=== PATIENT | female | born 1975 | race Caucasian/White ===

== ENCOUNTER → 2017-01-09 | Outpatient (CLI) | payer OTHER ==
--- NOTE | 2017-01-09 16:23 | REPMRS ---
Patient History The patient states she had a clinical breast exam in 12/2016. No known family history of cancer. Took hormonal contraceptives for 13 years. Digital Woman Screen Mammo: January 09, 2017 - Exam #: [id number] Bilateral CC and MLO view(s) were taken. Technologist: Zulay Cuellar, Technologist Prior study comparison: January 09, 2016, digital woman screen mammo performed at [facility]. December 20, 2014, bilateral digital mammo screening bilat, performed at [facility]. FINDINGS: There are scattered fibroglandular densities. There has been no change in the appearance of the mammogram from the prior studies. There is a mild amount of residual fibroglandular tissue which is fairly symmetric. There is no interval development of dominant mass, architectural distortion, or clustered microcalcification suggestive of malignancy. ASSESSMENT: BI-RADS/ACR category 1 mammogram. Negative. Recommendation Routine screening mammogram in 1 year (for women over age 40). This mammogram was interpreted with the aid of an FDA-approved computer-aided dectection system. Electronically Signed By: Matt Sanchez MD 01/09/17 [id number]
== END ==
LOC: M WHC 15:16
PROVIDERS: ATTEND Obstetrics & Gynecology
DX: Z12.31 Encounter for screening mammogram for malignant neoplasm of breast (principal)

== ENCOUNTER → 2017-09-28 | Outpatient (REF) | payer OTHER | LOC: M LAB REF 09-29 14:47 | DX: J02.9 Acute pharyngitis, unspecified (principal) | CPT/HCPCS: 87081 ==

== ENCOUNTER → 2018-01-06 | Outpatient (CLI) | payer OTHER | LOC: M WHC 14:28 | DX: Z12.31 Encounter for screening mammogram for malignant neoplasm of breast (principal) | CPT/HCPCS: 77067 ==

== ENCOUNTER → 2018-01-23 | Outpatient (CLI) | payer OTHER | LOC: M RAD 14:44 | DX: N60.01 Solitary cyst of right breast (principal) | CPT/HCPCS: 76642 ==

== ENCOUNTER → 2018-08-01 | Outpatient (CLI) | payer OTHER | LOC: M ADAMS 13:22 | DX: M54.5 Low back pain (principal) | CPT/HCPCS: 72100 ==

== ENCOUNTER → 2018-11-06 | Outpatient (REF) | payer OTHER ==
[2018-11-06 13:27] LABS: BASO % 0.8 % (0.0-1.0); EOS # 0.1 10^3/uL (0.0-0.50); EOS % 3.5 % (0.0-3.0); HEMATOCRIT 41.9 % (36.0-47.0); HEMOGLOBIN 13.9 g/dl (12.0-15.5); LYMPH # 1.6 10^3/uL (1.5-4.5); MEAN CORPUSCULAR HEMOGLOBIN 29.9 pg (27.0-33.0); MEAN CORPUSCULAR HGB CONC 33.2 g/dl (32.0-36.5); MEAN CORPUSCULAR VOLUME 90.1 fl (80.0-96.0); MONO # 0.4 10^3/uL (0.0-0.8); MONO % 9.9 % (0.0-5.0); NEUTROPHILS # 1.8 10^3/uL (1.8-7.7); NEUTROPHILS % 45.5 % (36.0-66.0); PLATELET COUNT, AUTOMATED 250 10^3/uL (150-450); RED BLOOD COUNT 4.65 10^6/uL (4.00-5.40)
[2018-11-06 13:49] LABS: ALBUMIN 3.5 GM/DL (3.2-5.2); BILIRUBIN,TOTAL 0.3 MG/DL (0.2-1.0); CALCIUM LEVEL 8.1 MG/DL (8.5-10.1); CHOLESTEROL RISK RATIO 2.735 (<5); CREATININE FOR GFR 1.09 MG/DL (0.55-1.30); FREE T4 1.08 NG/DL (0.76-1.46); GLOMERULAR FILTRATION RATE 58.1 (>58); POTASSIUM SERUM 4.4 MEQ/L (3.5-5.1); THYROID STIMULATING HORMONE 1.64 uIU/ML (0.358-3.740); TOTAL PROTEIN 6.4 GM/DL (6.4-8.2)
[2018-11-06 14:24] LABS: HEMOGLOBIN A1c 5.7 %
[2018-11-06 15:54] LABS: TOTAL 25(OH) VITAMIN D 79.1 NG/ML (30.0-100.0)
== END ==
LOC: M LABDRWAD 12:20
PROVIDERS: ATTEND Physician Assistant
DX: Z13.29 Encounter for screening for other suspected endocrine disorder (principal)

== ENCOUNTER 2020-02-03 20:08 | Inpatient (IN) | payer OTHER ==
[~2020-02-03] VITALS: Ht 170.2 cm; Wt 80.3 kg
[~2020-02-03 20:08] MED LIST: NICOTINE 21MG/24HR 1 EA TRANSDERMAL TD SCH
[2020-02-03] MEDS ORDERED: HYDR100C PO (20:14)
[2020-02-03] MEDS ORDERED: ASPI81TA26 PO (20:15)
[2020-02-03 20:52] LABS: HEMATOCRIT 44.1 % (36.0-47.0); HEMOGLOBIN 14.9 g/dl (12.0-15.5); MEAN CORPUSCULAR HEMOGLOBIN 29.6 pg (27.0-33.0); MEAN CORPUSCULAR HGB CONC 33.8 g/dl (32.0-36.5); MEAN CORPUSCULAR VOLUME 87.5 fl (80.0-96.0); PLATELET COUNT, AUTOMATED 242 10^3/uL (150-450); RED BLOOD COUNT 5.04 10^6/uL (4.00-5.40)
[2020-02-03] MEDS ORDERED: ASPIRIN 81 MG ENTERIC TAB PO SCH (21:00)
[2020-02-03] MEDS ORDERED: VITAMIN D 1,000 INTERNATIONAL UNITS TABLET PO SCH (21:00)
[2020-02-03] MEDS ORDERED: hydrOXYzine 50 MG TAB PO SCH (21:00)
[2020-02-03 21:15] LABS: AMPHETAMINES LEVEL URINE NEGATIVE (NEGATIVE); BARBITURATES URINE NEGATIVE (NEGATIVE); BENZODIAZEPINES URINE NEGATIVE (NEGATIVE); CANNABINOIDS URINE NEGATIVE (NEGATIVE); COCAINE METABOLITE URINE NEGATIVE (NEGATIVE); METHADONE URINE NEGATIVE (NEGATIVE); OPIATES URINE NEGATIVE (NEGATIVE); PHENCYCLIDINE URINE NEGATIVE (NEGATIVE)
[2020-02-03 21:25] LABS: ACETAMINOPHEN LEVEL < 2.0 UG/ML (10.0-30.0); ALBUMIN 3.9 GM/DL (3.2-5.2); ALT/SGPT 24 U/L (12-78); BILIRUBIN,DIRECT < 0.1 MG/DL (0.0-0.2); BILIRUBIN,TOTAL 0.3 MG/DL (0.2-1.0); BLOOD UREA NITROGEN 13 MG/DL (7-18); CARBON DIOXIDE LEVEL 29 MEQ/L (21-32); CHLORIDE LEVEL 106 MEQ/L (98-107); CREATININE FOR GFR 1.21 MG/DL (0.55-1.30); ETHYL ALCOHOL (ETHANOL) 0.003 % (0.000-0.010); GLUCOSE, FASTING 131 MG/DL (70-100); POTASSIUM SERUM 3.8 MEQ/L (3.5-5.1); SALICYLATE LEVEL < 1.7 MG/DL (5.0-30.0); SODIUM LEVEL 143 MEQ/L (136-145); TOTAL PROTEIN 7.2 GM/DL (6.4-8.2)
[2020-02-03] MEDS ORDERED: OMEG350C PO (21:47)
[2020-02-03] MEDS ORDERED: GLUCTAB6 PO (21:47)
[2020-02-03] MEDS ORDERED: HYDR50CA2 PO (21:47)
[2020-02-03] MEDS ORDERED: VITAD1000T PO (21:47)
[2020-02-03] MEDS ORDERED: MOM 30ML SUSPENSION UDC PO PRN (22:30)
[2020-02-03] MEDS ORDERED: MAALOX 30 ML SUSP *UDC PO PRN (22:30)
[2020-02-03] MEDS ORDERED: traZODone 50 MG TAB PO PRN (22:30)
[2020-02-03] MEDS ORDERED: ACETAMINOPHEN TAB 650MG DOSE (2X325MG) PO PRN (22:30)
[2020-02-04 00:37] VITALS: BP 124/89
[2020-02-04 06:14] VITALS: BP 130/66
--- NOTE | 2020-02-04 09:22 | MHHPEPDOC ---
[facility] History & Physical History and Physical DATE OF ADMISSION: February 03, 2020 at 22:26 New Patient Angelina Rodriguez MRN: N/A Date of : N/A Date of Service: 02/04/2020 Chief Complaint "It was nothing." History of Present Illness The patient is a 44-year-old woman who reportedly had become quite upset after an argument with her ex-, she reports her ex- is a narcissist and makes her life difficult. She reports that she had gotten fairly upset. She is not as forthcoming as I would like about the details and generally is guarded about discussing what happened. There have been concerns that she had gotten a firearm out of her gun safe and could have been planning to hurt herself before her colleagues had called the police. She generally denies all psychiatric symptoms although appears quite tearful and flat. She denies any suicide attempts in the past. Review Of Systems Depression: As above. Denies all symptoms. Anxiety: Denies all symptoms. Mona: The patient denies any episodes of euphoria/dysphoria associated with decreased need for sleep, hedonism, talkatively or impulsivity lasting longer than 5 days. Psychotic: The patient denies any experiences of auditory or visual hallucinations. They deny any episodes of paranoia or delusional thinking in the past Trauma: The patient denies any traumatic events associated with nightmares or intrusive thoughts. Borderline: Not screened. Past Psychiatric History The patient reports no history of psychiatric admissions, medication trials or current follow up. Allergies Please see below. Family Psychiatric History The patient denies/is unaware any history of mental health history including addictions and suicide. 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 She reports being to another man for six years. She reports having two children with her ex- and a fairly contentious relationship. No history of legal problems. Substance Abuse History The patient denies any excessive alcohol use, tobacco or illicit drug use, denies history of substance use treatment. Medical History Patient has no significant past medical history. Mental Status Examination General: Well dressed with good hygiene. Speech: Spontaneous and fluid. Thought processes: Linear and logical. MSK: Smooth and coordinated gait, no signs of tremors or involuntary orofacial movements. Thought content: Guarded. Abstract reasoning, and computation: Intact. Description of associations: Intact. Description of abnormal or psychotic thoughts: Overtly denies any suicidal or homicidal ideation. Judgment: Unclear. Insight: Unclear. Orientation: Alert and orientated 3. Cognition: Grossly normal. Recent and remote memory: Intact. Attention span and concentration: Intact. Fund of knowledge: Adequate. Mood: "okay." Affect: Flat and dysthymic. Diagnoses Unspecified depressive disorder. Unspecified trauma/stress related disorder. Assessment and Plan The patient, a 44-year-old woman with a history of no known psychiatric problems, presents after reportedly getting into some form of an argument, the situation appears unclear and the patient is somewhat guarded during the interview. It is unclear as to what the situation had been or how she had come to get here. The patient continually request discharge, however, she is quite flat at this time and will likely need further observation unless collateral information from her current can clarify the situation enough so that a safe plan can be made. I have discussed with the patient that I would be open to discharging her today if I was able to evaluate the situation further with more information to determine exactly what had happened as it appears unclear. I will discuss with the on-call provider for tomorrow for her evaluation as to whether she wishes to discharge the patient and whether she would meet involuntary criteria at that time. Disposition Will retain unless further collateral information suggests that likely will need extension at 48 hours if does not resolve significantly. Problem List 1. Risk for suicide. 2. Ineffective coping. Initial Treatment Plan 1. Patient was admitted on a 9.39 legal status. 2. Complete history was obtained. 3. With patients permission, family will be contacted and database will be expanded. 4. Patients medication regimen will be reviewed and changed accordingly. 5. Patient will be provided with protected environment. 6. Patient will be treated with individual, group, and milieu therapies. 7. Patient will receive supportive psych-education. 8. Discharge planning will commence immediately. 9. Outpatient follow-up treatment will be strongly recommended. 10. The initial treatment plan will focus initially on: Estimated Length Of Stay Two days. Time Spent 70 minutes with greater than 50% of times on counseling/coordination of care. Friday Vital Signs Vital Signs Date Time Temp Pulse Resp B/P (MAP) Pulse Ox O2 Delivery O2 Flow Rate FiO2 02/04/20 06:14 98.4 73 16 130/66 (87) 98 Room Air Laboratory Data 24H Labs Laboratory Tests 2 5/21/20 20:39: Nucleated Red Blood Cells % (auto) 0.0, Anion Gap 8, Glomerular Filtration Rate 51.0L, Calcium Level 9.0, Total Bilirubin 0.3, Direct Bilirubin < 0.1, Aspartate Amino Transf (AST/SGOT) 12, Alanine Aminotransferase (ALT/SGPT) 24, Alkaline Phosphatase 66, Total Protein 7.2, Albumin 3.9, Albumin/Globulin Ratio 1.2, Thyroid Stimulating Hormone (TSH) 1.040, Salicylates Level < 1.7L, Urine Opiates Screen NEGATIVE, Urine Methadone Screen NEGATIVE, Acetaminophen Level < 2.0L, Urine Barbiturates Screen NEGATIVE, Urine Phencyclidine Screen NEGATIVE, Urine Amphetamines Screen NEGATIVE, Urine Benzodiazepines Screen NEGATIVE, Urine Cocaine Metabolite Screen NEGATIVE, Urine Cannabinoids Screen NEGATIVE, Ethyl Alcohol Level 0.003 CBC/BMP Laboratory Tests 02/03/20 20:39 Medications Scheduled Aspirin (Aspirin EC) 81 Mg Tablet.dr, 81 MG PO QHS, (Reported) Cholecalciferol (Vitamin D3) (Vitamin D3) 1,000 Unit Tablet, 5,000 UNITS PO QHS, (Reported) Gluc Santacruz/Chondro Santacruz A/Vit C/Mn (Glucosamine Chondroitin Tab) 1 Each Tablet, 1 TAB PO QHS, (Reported) Hydroxyzine Pamoate (Hydroxyzine Pamoate) 50 Mg Capsule, 100 MG PO QHS, (Reporte d) [place]-3/Dha/Epa/Fish Oil ([place]-3 EC Softgel) 1 Each Capsule.dr, 1 CAP PO QHS, (Reported) Allergies Coded Allergies: Penicillins (Verified Allergy, Unknown, UNKNOWN CHILDHOOD REACTION, 02/03/20) DEMOND JONES DO February 04, 2020 09:22
--- NOTE | 2020-02-04 15:04 | MHDSPDOC ---
[facility] Discharge Summary Discharge Summary DATE OF ADMISSION: February 03, 2020 at 22:26 DATE OF DISCHARGE: 02/04/2020 Discharge Angelina Rodriguez MRN: N/A Date of : N/A Date of Service: 02/04/2020 Diagnoses Unspecified depressive disorder. Unspecified trauma/stress related disorder. History of Present Illness The patient is a 44-year-old woman who reportedly had become quite upset after an argument with her ex-, she reports her ex- is a narcissist and makes her life difficult. She reports that she had gotten fairly upset. She is not as forthcoming as I would like about the details and generally is guarded about discussing what happened. There have been concerns that she had gotten a firearm out of her gun safe and could have been planning to hurt herself before her colleagues had called the police. She generally denies all psychiatric s ymptoms although appears quite tearful and flat. She denies any suicide attempts in the past. Consultants Involved Hospitalist/PCP screening Treatment and Progress On The Unit The patient was admitted to the inpatient mental health unit. Initially when the patient had presented, the patient had reported that she had no interest in harming herself. She was emphatic about wanting to be discharged. She was observed over the day where she generally was more euthymic and hopeful. Collateral information was gathered from her who reported that she has no signs of behavior like this and this is highly unusual for her. He reports that he had removed all the weapons and engaged in safety planning and will keep a close eye on her over the weekend as he will be home during the entire time. He emphatically wanted the patient discharged and the patient was interested as well. After observation and waning of her risk factors, she was discharged in good dexter. Discharge Assessment 44-year-old woman with a history of unclear stress related problems presents after reportedly engaging in some sort of suicidal gesture or quasi-suicidal engagement. The patient is observed, however, she does not demonstrate significant factors enough given the collateral information to be held against her will in my opinion. She has no history of suicide attempts, she has multiple protective factors including a respecting job, children and a supportive . She engages in safety planning and is help seeking . She declines further voluntary admission, and thus I am at a loss for baking a argument for why she should be retained over the weekend for observation that will likely yield no significant change in her status and will only cause further distress to her. Her reevaluation when I had met with her for the second time yields a much more euthymic, engaged and gregarious individual. Her initial hesitancy could be simply related to anxiety interpretation given her first presentation in inpatient psychiatric unit commonly a fairly traumatic experience for most people. Mental Status Examination General: Well dressed with good hygiene Speech: Spontaneous and fluid Thought processes: Linear and logical MSK: Smooth and coordinated gait, no signs of tremors or involuntary orofacial movements Thought content: Future orientated Abstract reasoning, and computation: Intact Description of associations: Intact Description of abnormal or psychotic thoughts: Denies any suicidal or homicidal ideation. Denies any auditory or visual hallucinations. Does not appear to be responding to internal stimuli. Does not appear to be endorsing any bizarre or paranoid ideation. Judgment: fair Insight: fair Orientation: Alert and orientated 3 Cognition: Grossly normal Recent and remote memory: Intact Attention span and concentration: Intact Fund of knowledge: Adequate Mood: "okay" Affect: Euthymic with a full range Follow Up The social work team worked during the predischarge meeting in order to evaluate for further issues of lethality address them fully before discharge. They worked on safety planning with the patient's family members in order to ensure that the patient will have a safe and effective discharge. Time Spent The amount of time spent in the coordination of care for this patient was approximately 45 minutes. Friday Vital Signs/I&Os Vital Signs Date Time Temp Pulse Resp B/P (MAP) Pulse Ox O2 Delivery O2 Flow Rate FiO2 02/04/20 09:35 Room Air 02/04/20 06:14 98.4 73 16 130/66 (87) 98 Laboratory Data Labs 24H Laboratory Tests 2 02/03/20 20:39: Nucleated Red Blood Cells % (auto) 0.0, Anion Gap 8, Glomerular Filtration Rate 51.0L, Calcium Level 9.0, Total Bilirubin 0.3, Direct Bilirubin < 0.1, Aspartate Amino Transf (AST/SGOT) 12, Alanine Aminotransferase (ALT/SGPT) 24, Alkaline Phosphatase 66, Total Protein 7.2, Albumin 3.9, Albumin/Globulin Ratio 1.2, Thyr oid Stimulating Hormone (TSH) 1.040, Salicylates Level < 1.7L, Urine Opiates Screen NEGATIVE, Urine Methadone Screen NEGATIVE, Acetaminophen Level < 2.0L, Urine Barbiturates Screen NEGATIVE, Urine Phencyclidine Screen NEGATIVE, Urine Amphetamines Screen NEGATIVE, Urine Benzodiazepines Screen NEGATIVE, Urine Cocaine Metabolite Screen NEGATIVE, Urine Cannabinoids Screen NEGATIVE, Ethyl Alcohol Level 0.003 CBC/BMP Laboratory Tests 02/03/20 20:39 Medications Scheduled Aspirin (Aspirin EC) 81 Mg Tablet.dr, 81 MG PO QHS, (Reported) Cholecalciferol (Vitamin D3) (Vitamin D3) 1,000 Unit Tablet, 5,000 UNITS PO QHS, (Reported) Gluc Santacruz/Chondro Santacruz A/Vit C/Mn (Glucosamine Chondroitin Tab) 1 Each Tablet, 1 TAB PO QHS, (Reported) Hydroxyzine Pamoate (Hydroxyzine Pamoate) 50 Mg Capsule, 100 MG PO QHS, (Reported) [place]-3/Dha/Epa/Fish Oil ([place]-3 EC Softgel) 1 Each Capsule.dr, 1 CAP PO QHS, (Reported) Allergies Coded Allergies: Penicillins (Verified Allergy, Unknown, UNKNOWN CHILDHOOD REACTION, 02/03/20) DEMOND JONES DO February 04, 2020 15:04
--- NOTE | 2020-02-04 15:34 | HPEPDOC ---
General Date of Admission February 03, 2020 at 22:26 Date of Service: February 04, 2020 Chief Complaint The patient is a 44-year-old female admitted with a reason for visit of Unspecified Depressive Disorder. Source: Patient Timing/Duration: Day(s) Severity: Moderate History of Present Illness Patient is 44 years old male w/o significant past medical history, who was admitted in the hospital acute stress disorder. He denied any cardiovascular problem, breathing problem, GI problem or dysuria. He denies fever, chills, nausea, vomiting, shortness of breath, palpitations, diarrhea or dysuria Home Medications Scheduled Aspirin (Aspirin EC) 81 Mg Tablet.dr, 81 MG PO QHS, (Reported) Cholecalciferol (Vitamin D3) (Vitamin D3) 1,000 Unit Tablet, 5,000 UNITS PO QHS, (Reported) Gluc Santacruz/Chondro Santacruz A/Vit C/Mn (Glucosamine Chondroitin Tab) 1 Each Tablet, 1 TAB PO QHS, (Reported) Hydroxyzine Pamoate (Hydroxyzine Pamoate) 50 Mg Capsule, 100 MG PO QHS, (Reported) [place]-3/Dha/Epa/Fish Oil ([place]-3 EC Softgel) 1 Each Capsule.dr, 1 CAP PO QHS, (Reported) Allergies Coded Allergies: Penicillins (Verified Allergy, Unknown, UNKNOWN CHILDHOOD REACTION, 02/03/20) Past Medical History Medical History no PMH Family History F from lung cancer Social History * Smoker: Denies Alcohol: Denies Drugs: denies A-FIB/CHADSVASC A-FIB History Current/History of A-Fib/PAF?: No Current PO Anticoag Therapy: No Review of Systems Constitutional: Denies: Chills, Fever, Night Sweats Eyes: Denies: Pain ENT: Denies: Head Aches Skin: Denies: Rash, Lesions Pulmonary: Denies: Dyspnea Cardiovascular: Denies: Chest Pain Gastrointestinal: Denies: Nausea, Vomiting Genitourinary: Denies: Dysuria Hematologic: Denies: Bruising, Bleeding Excessively Endocrine: Denies: Polydipsia, Polyphagia Musculoskeletal: Denies: Neck Pain Neurological: Denies: Weakness Psych: Reports: Anxiety, Anger Physical Examination General Exam: Positive: Alert, Cooperative Eye Exam: Positive: PERRLA ENT Exam: Positive: Atraumatic Neck Exam: Positive: Supple; Negative: JVD Chest Exam: Positive: Clear to auscultation Heart Exam: Positive: Rate Normal Telemetry: Positive: No significant arrhythmia Abdomen Exam: Positive: Normal bowel sounds Extremity Exam: Negative: Clubbing, Cyanosis Skin Exam: Positive: Nl turgor and temperature Neuro Exam: Positive: Strength at 5/5 X4 ext Psych Exam: Positive: Mental status NL Vital Signs Vital Signs Date Time Temp Pulse Resp B/P (MAP) Pulse Ox O2 Delivery O2 Flow Rate FiO2 02/04/20 09:35 Room Air 02/04/20 06:14 98.4 73 16 130/66 (87) 98 Laboratory Data Labs 24H Laboratory Tests 2 02/03/20 20:39: Nucleated Red Blood Cells % (auto) 0.0, Anion Gap 8, Glomerular Filtration Rate 51.0L, Calcium Level 9.0, Total Bilirubin 0.3, Direct Bilirubin < 0.1, Aspartate Amino Transf (AST/SGOT) 12, Alanine Aminotransferase (ALT/SGPT) 24, Alkaline Phosphatase 66, Total Protein 7.2, Albumin 3.9, Albumin/Globulin Ratio 1.2, Thyroid Stimulating Hormone (TSH) 1.040, Salicylates Level < 1.7L, Urine Opiates Screen NEGATIVE, Urine Methadone Screen NEGATIVE, Acetaminophen Level < 2.0L, Urine Barbiturates Screen NEGATIVE, Urine Phencyclidine Screen NEGATIVE, Urine Amphetamines Screen NEGATIVE, Urine Benzodiazepines Screen NEGATIVE, Urine Cocaine Metabolite Screen NEGATIVE, Urine Cannabinoids Screen NEGATIVE, Ethyl Alcohol Level 0.003 CBC/BMP Laboratory Tests 02/03/20 20:39 Assessment/Plan Patient is 44 years old male w/o significant past medical history, who was admitted in the hospital acute stress disorder. He denied any cardiovascular problem, breathing problem, GI problem or dysuria. He denies fever, chills, nausea, vomiting, shortness of breath, palpitations, diarrhea or dysuria Problems (1) Suicide risk Status: Acute Problem Text: will defer therapy to psych team (2) SANDEEP (acute kidney injury) Status: Acute Problem Text: unknown etiology continue to monitor repeat BMP Plan / VTE VTE Prophylaxis Ordered?: No VTE Exclusion Mechanical Proph: Low Risk for VTE COY JERNIGAN DO February 04, 2020 15:34
== END 2020-02-04 16:15 | disposition home or self-care (01) | DRG 882 ==
LOC: M ED 20:08 → M ED INP 22:26 → M PSY 23:44
PROVIDERS: ADMIT Psychiatry & Neurology Psychiatry; ATTEND Psychiatry & Neurology Addiction Medicine
DX: F43.9 Reaction to severe stress, unspecified (principal); R45.851 Suicidal ideations; N17.9 Acute kidney failure, unspecified; Z79.82 Long term (current) use of aspirin; Z79.899 Other long term (current) drug therapy; Z88.0 Allergy status to penicillin

== ENCOUNTER → 2020-04-26 | Outpatient (REF) | payer OTHER ==
[~2020-04-26] MED LIST changes: +ASPI81TA26 PO; +D31000TA2 PO; +GLUCTAB6 PO; +HYDR100C PO; +HYDR50CA2 PO; -NICOTINE 21MG/24HR 1 EA TRANSDERMAL TD SCH; +OMEG350C PO
[2020-05-29 09:55] LABS: BASO % 0.6 % (0.0-1.0); COLLAGEN EPINEPHRINE 139 SECONDS (74-162); EOS # 0.1 10^3/uL (0.0-0.5); EOS % 1.4 % (0.0-3.0); HEMATOCRIT 40.9 % (36.0-47.0); HEMOGLOBIN 13.3 g/dl (12.0-15.5); LYMPH # 1.2 10^3/uL (1.5-5.0); LYMPH % 23.7 % (24.0-44.0); MEAN CORPUSCULAR HEMOGLOBIN 30.4 pg (27.0-33.0); MEAN CORPUSCULAR HGB CONC 32.5 g/dl (32.0-36.5); MEAN CORPUSCULAR VOLUME 93.4 fl (80.0-96.0); MONO # 0.3 10^3/uL (0.0-0.8); NEUTROPHILS # 3.3 10^3/uL (1.5-8.5); NEUTROPHILS % 68.1 % (36.0-66.0); PLATELET COUNT, AUTOMATED 233 10^3/uL (150-450); RED BLOOD COUNT 4.38 10^6/uL (4.00-5.40); WHITE BLOOD COUNT 4.9 10^3/uL (4.0-10.0)
[2020-06-11 06:41] LABS: ALT/SGPT 28 U/L (12-78); BILIRUBIN,TOTAL 0.3 MG/DL (0.2-1.0); BLOOD UREA NITROGEN 7 MG/DL (7-18); CALCIUM LEVEL 8.8 MG/DL (8.5-10.1); CARBON DIOXIDE LEVEL 26 MEQ/L (21-32); CHLORIDE LEVEL 106 MEQ/L (98-107); CREATININE FOR GFR 0.94 MG/DL (0.55-1.30); GLOMERULAR FILTRATION RATE > 60.0 (>58); GLUCOSE, FASTING 117 MG/DL (70-100); POTASSIUM SERUM 3.9 MEQ/L (3.5-5.1); SODIUM LEVEL 139 MEQ/L (136-145)
[2020-06-11 06:42] LABS: ALBUMIN 3.7 GM/DL (3.2-5.2); FERRITIN 24 NG/ML (8-252); FOLATE 14.4 NG/ML; FREE T4 1.04 NG/DL (0.76-1.46); IRON (FE) 64 UG/DL (50-170); NT-PRO BNP 63 PG/ML (<125); PERCENT SATURATION 21.8 % (13.2-45.0); THYROID STIMULATING HORMONE 0.501 uIU/ML (0.358-3.740); TOTAL IRON BINDING CAPACITY 293 UG/DL (250-450); TOTAL PROTEIN 6.3 GM/DL (6.4-8.2); VITAMIN B12 LEVEL 461 PG/ML
== END ==
LOC: M WUC 10:12
PROVIDERS: ATTEND Family Medicine
DX: R23.3 Spontaneous ecchymoses (principal); R60.0 Localized edema

== ENCOUNTER → 2020-06-27 | Outpatient (CLI) | payer OTHER ==
--- NOTE | 2020-06-30 11:59 | REP ---
LEFT KNEE RADIOGRAPH: 06/27/20 CLINICAL: Contusion. TECHNIQUE: AP, lateral, bilateral, oblique and sunrise views of the left knee. FINDINGS: Osseous structures, joint spaces, and surrounding soft tissues appear normal. No evidence for acute fracture or dislocation. No obvious effusion. IMPRESSION: Age related changes. No evidence for acute fracture or dislocation. [facility]
== END ==
LOC: M ADAMS 16:06
PROVIDERS: ATTEND Physician Assistant
DX: S80.02XA Contusion of left knee, initial encounter (principal); X58.XXXA Exposure to other specified factors, initial encounter; Y92.9 Unspecified place or not applicable

== ENCOUNTER → 2021-09-03 | Outpatient (CLI) | payer OTHER | LOC: M RAD 11:37 | PROVIDERS: ATTEND Physician Assistant | DX: M54.50 Low back pain, unspecified (principal); M51.37 Other intervertebral disc degeneration, lumbosacral region ==

== ENCOUNTER → 2022-02-22 | Outpatient (CLI) | payer OTHER ==
[~2022-02-22] MED LIST changes: -D31000TA2 PO; -GLUCTAB6 PO; +GLUCTAB7 PO; +VITA100093 PO
== END ==
LOC: M WHC 06:59
PROVIDERS: ATTEND Obstetrics & Gynecology
DX: N95.0 Postmenopausal bleeding (principal); R93.89 Abnormal findings on diagnostic imaging of other specified body structures

== ENCOUNTER → 2022-05-27 | Outpatient (CLI) | payer SELFPAY, BC ==
[~2022-05-27] MED LIST changes: +LEXA1TAB PO; +TRAZ-252 PO
== END ==
LOC: M LABSMTC 09:36
PROVIDERS: ATTEND Anesthesiology
DX: Z01.818 Encounter for other preprocedural examination (principal); Z11.52 Encounter for screening for COVID-19

== ENCOUNTER 2022-05-31 13:46 | Day surgery (SDC) | payer BC ==
[~2022-05-31] VITALS: Ht 170.2 cm; Wt 80.6 kg
[2022-05-31] MEDS ORDERED: LR 1,000 ML IV SCH (14:05)
[2022-05-31] MEDS ORDERED: ONDANSETRON 4MG 2ML VIAL As Ordered ONE (14:25)
[2022-05-31] MEDS ORDERED: fentaNYL 100 MCG/2 ML INJECTION As Ordered ONE (14:25)
[2022-05-31] MEDS ORDERED: propofoL 200 MG/20 ML VIAL As Ordered ONE (14:25)
[2022-05-31] MEDS ORDERED: LIDOCAINE 2% 100MG/5ML SDV (FOR ANES.) As Ordered ONE (14:25)
[2022-05-31] MEDS ORDERED: KETOROLAC 60MG 2ML VIAL As Ordered ONE (14:25)
[2022-05-31] MEDS ORDERED: MIDAZOLAM INJ 2MG/2ML VIAL (J2250 PER 1MG) As Ordered ONE (14:25)
[2022-05-31] MEDS ORDERED: dexameTHASONE 4 MG/ML 1ML VIAL (J1100 PER 1MG) As Ordered ONE (14:25)
[2022-05-31 14:30] LABS: HEMOGLOBIN 16.6 g/dl (12.0-15.5); MEAN CORPUSCULAR HEMOGLOBIN 30.5 pg (27.0-33.0); MEAN CORPUSCULAR HGB CONC 32.5 g/dl (32.0-36.5); MEAN CORPUSCULAR VOLUME 93.6 fl (80.0-96.0); PLATELET COUNT, AUTOMATED 247 10^3/uL (150-450); RED BLOOD COUNT 5.45 10^6/uL (4.00-5.40); WHITE BLOOD COUNT 7.4 10^3/uL (4.0-10.0)
[2022-05-31 14:56] LABS: HCG, SERUM QUALITATIVE NEGATIVE (NEGATIVE)
[2022-05-31 17:22] VITALS: BP 119/77
== END 2022-05-31 18:02 | disposition home or self-care (01) ==
LOC: M SDC 13:46
PROVIDERS: ATTEND Obstetrics & Gynecology
DX: N93.9 Abnormal uterine and vaginal bleeding, unspecified (principal); Z79.899 Other long term (current) drug therapy; Z88.0 Allergy status to penicillin
CPT/HCPCS: 36415; 58558; 84703; 85027; 86850; 86900; 86901; 88305; J1100; J1885; J2250; J2405; J3010

== ENCOUNTER → 2023-04-23 | Outpatient (CLI) | payer BC ==
[2023-04-23 13:19] LABS: HEMATOCRIT 43.9 % (36.0-47.0); HEMOGLOBIN 14.5 g/dl (12.0-15.5); MEAN CORPUSCULAR HEMOGLOBIN 29.9 pg (27.0-33.0); MEAN CORPUSCULAR VOLUME 90.5 fl (80.0-96.0); PLATELET COUNT, AUTOMATED 138 10^3/uL (150-450); RED BLOOD COUNT 4.85 10^6/uL (4.00-5.40); WHITE BLOOD COUNT 2.2 10^3/uL (4.0-10.0)
[2023-04-23 13:41] LABS: ALBUMIN 3.6 G/DL (3.2-5.2); ALKALINE PHOSPHATASE 98 U/L (46-116); ALT/SGPT 57 U/L (7.0-40); AST/SGOT 40 U/L (<34); BILIRUBIN,TOTAL 0.4 MG/DL (0.3-1.2); BLOOD UREA NITROGEN 18 MG/DL (9-23); CALCIUM LEVEL 8.7 MG/DL (8.5-10.1); CARBON DIOXIDE LEVEL 27 MMOL/L (20-31); CHLORIDE LEVEL 105 MMOL/L (98-107); CREATININE FOR GFR 1.05 MG/DL (0.55-1.30); GLOMERULAR FILTRATION RATE 59.3 (>58); GLUCOSE, FASTING 107 MG/DL (60-100); POTASSIUM SERUM 4.2 MMOL/L (3.5-5.1); SODIUM LEVEL 140 MMOL/L (136-145); TOTAL PROTEIN 6.6 G/DL (5.7-8.2)
[2023-04-23 13:44] LABS: MONO REFLEX EBV COMP NEGATIVE (NEGATIVE)
[2023-04-23 14:00] LABS: ATYPICAL LYMPH 14 % (0-5); BASOPHILS 1 % (0-1); LYMPHOCYTES 22 % (16-44); MONOCYTES 4 % (0-5); NEUTROPHILS 59 % (28-66)
[2023-04-23 14:01] LABS: PLATELET ESTIMATE NORMAL (NORMAL)
[2023-04-23 16:06] LABS: ERYTHROCYTE SEDIMENTATION RATE 10 mm/hr (0-20)
[2023-04-24 16:09] LABS: EBV VIRAL CAPSID AG IgM <36.0 U/mL (0.0-35.9); IgG P18 AB Absent (.); IgG P23 AB Absent (.); IgG P28 AB Absent (.); IgG P30 AB Absent (.); IgG P39 AB Absent (.); IgG P41 AB Absent (.); IgG P45 AB Absent (.); IgG P66 AB Absent (.); IgG P93 AB Absent (.); IgM P23 AB Absent (.); IgM P39 AB Present (.); IgM P41 AB Absent (.); LYME IgG WB INTERPRETATION Negative (.); LYME IgM WB INTERPRETATION Negative (.)
== END ==
LOC: M LAB 12:50
PROVIDERS: ATTEND Physician Assistant
DX: R51.9 Headache, unspecified (principal); R50.9 Fever, unspecified

== ENCOUNTER → 2023-05-22 | Outpatient (REF) | payer BC ==
[2023-05-22 22:27] LABS: BASO % 0.7 % (0.0-1.0); EOS # 0.1 10^3/uL (0.0-0.5); EOS % 2.7 % (0.0-3.0); HEMATOCRIT 40.3 % (36.0-47.0); LYMPH # 1.2 10^3/uL (1.5-5.0); LYMPH % 27.8 % (24.0-44.0); MEAN CORPUSCULAR HGB CONC 32.3 g/dl (32.0-36.5); MEAN CORPUSCULAR VOLUME 93.1 fl (80.0-96.0); MONO # 0.4 10^3/uL (0.0-0.8); MONO % 8.5 % (2.0-8.0); NEUTROPHILS # 2.7 10^3/uL (1.5-8.5); NEUTROPHILS % 60.1 % (36.0-66.0); PLATELET COUNT, AUTOMATED 219 10^3/uL (150-450); RED BLOOD COUNT 4.33 10^6/uL (4.00-5.40); WHITE BLOOD COUNT 4.5 10^3/uL (4.0-10.0)
[2023-05-22 22:47] LABS: LDH LACTATE DEHYDROGENASE 199 U/L (120-246)
[2023-05-22 22:49] LABS: ALBUMIN 3.7 G/DL (3.2-5.2); ALKALINE PHOSPHATASE 73 U/L (46-116); ALT/SGPT 19 U/L (7.0-40); AST/SGOT 10 U/L (<34); BILIRUBIN,TOTAL 0.3 MG/DL (0.3-1.2); BLOOD UREA NITROGEN 22 MG/DL (9-23); CALCIUM LEVEL 8.7 MG/DL (8.5-10.1); CARBON DIOXIDE LEVEL 26 MMOL/L (20-31); CHLORIDE LEVEL 104 MMOL/L (98-107); CREATININE FOR GFR 0.99 MG/DL (0.55-1.30); GLOMERULAR FILTRATION RATE > 60.0 (>58); GLUCOSE, FASTING 68 MG/DL (60-100); SODIUM LEVEL 138 MMOL/L (136-145); TOTAL PROTEIN 6.6 G/DL (5.7-8.2)
[2023-05-22 22:51] LABS: C REACTIVE PROTEIN QUANTITATIV < 0.40 MG/DL (<1.0)
[2023-05-22 23:12] LABS: ERYTHROCYTE SEDIMENTATION RATE 9 mm/hr (0-20)
== END ==
LOC: M LAB REF 21:47
PROVIDERS: ATTEND Physician Assistant
DX: D72.819 Decreased white blood cell count, unspecified (principal); D72.89 Other specified disorders of white blood cells

== ENCOUNTER → 2023-09-17 | Outpatient (REF) | payer BC ==
[2023-09-17 13:29] LABS: CHOLESTEROL RISK RATIO 2.71 (<5); LDL CHOLESTEROL 139.6 MG/DL (<100)
[2023-09-17 13:35] LABS: BASO % 0.5 % (0.0-1.0); EOS # 0.1 10^3/uL (0.0-0.5); EOS % 1.4 % (0.0-3.0); HEMATOCRIT 44.2 % (36.0-47.0); HEMOGLOBIN 14.1 g/dl (12.0-15.5); LYMPH % 23.5 % (24.0-44.0); MEAN CORPUSCULAR HEMOGLOBIN 29.4 pg (27.0-33.0); MEAN CORPUSCULAR HGB CONC 31.9 g/dl (32.0-36.5); MEAN CORPUSCULAR VOLUME 92.1 fl (80.0-96.0); MONO # 0.4 10^3/uL (0.0-0.8); MONO % 8.7 % (2.0-8.0); NEUTROPHILS # 2.9 10^3/uL (1.5-8.5); NEUTROPHILS % 65.4 % (36.0-66.0); PLATELET COUNT, AUTOMATED 231 10^3/uL (150-450); THYROID STIMULATING HORMONE 1.149 uIU/ML (0.55-4.78); WHITE BLOOD COUNT 4.4 10^3/uL (4.0-10.0)
[2023-09-17 13:36] LABS: FREE T4 1.25 NG/DL (0.89-1.76)
== END ==
LOC: M LABDRWAD 12:30
PROVIDERS: ATTEND Family Medicine
DX: Z13.29 Encounter for screening for other suspected endocrine disorder (principal); Z13.220 Encounter for screening for lipoid disorders; Z13.0 Encounter for screening for diseases of the blood and blood-forming organs and certain disorders involving the immune mechanism

== ENCOUNTER 2023-11-06 08:36 | Day surgery (SDC) | payer BC ==
[~2023-11-06] VITALS: Ht 167.6 cm; Wt 87.5 kg
[~2023-11-06 08:36] MED LIST changes: +COLLCAP PO; +FERR325T81 PO; +MAGN250T7 PO
[2023-11-06] MEDS: NS 1,000 ML IV ONE (08:52)
[2023-11-06] MEDS ORDERED: propofoL 200 MG/20 ML VIAL As Ordered ONE (09:21)
[2023-11-06] MEDS ORDERED: LIDOCAINE 2% 100MG/5ML SDV (FOR ANES.) As Ordered ONE (09:21)
[2023-11-06 09:59] VITALS: TEMP 97.1
[2023-11-06 10:15] VITALS: BP 115/70; O2SAT 98
== END 2023-11-06 10:20 | disposition home or self-care (01) ==
LOC: M OPP 08:36
PROVIDERS: ATTEND Surgery
DX: Z12.11 Encounter for screening for malignant neoplasm of colon (principal); D12.6 Benign neoplasm of colon, unspecified; K57.30 Diverticulosis of large intestine without perforation or abscess without bleeding; Z79.899 Other long term (current) drug therapy; Z88.0 Allergy status to penicillin

== ENCOUNTER → 2024-07-29 | Outpatient (REF) | payer BC ==
[2024-07-29 15:08] LABS: BASO % 0.5 % (0.0-1.0); EOS # 0.1 10^3/uL (0.0-0.5); EOS % 2.3 % (0.0-3.0); HEMATOCRIT 43.6 % (36.0-47.0); HEMOGLOBIN 14.3 g/dl (12.0-15.5); LYMPH # 1.2 10^3/uL (1.5-5.0); LYMPH % 27.2 % (24.0-44.0); MEAN CORPUSCULAR HEMOGLOBIN 30.2 pg (27.0-33.0); MEAN CORPUSCULAR HGB CONC 32.8 g/dl (32.0-36.5); MEAN CORPUSCULAR VOLUME 92.2 fl (80.0-96.0); MONO # 0.4 10^3/uL (0.0-0.8); MONO % 9.1 % (2.0-8.0); NEUTROPHILS # 2.6 10^3/uL (1.5-8.5); NEUTROPHILS % 60.7 % (36.0-66.0); PLATELET COUNT, AUTOMATED 225 10^3/uL (150-450); RED BLOOD COUNT 4.73 10^6/uL (4.00-5.40); WHITE BLOOD COUNT 4.3 10^3/uL (4.0-10.0)
[2024-07-29 15:32] LABS: ALBUMIN 3.9 G/DL (3.2-5.2); ALKALINE PHOSPHATASE 62 U/L (35-104); ALT/SGPT 18 U/L (7.0-40); AST/SGOT < 8 U/L (<34); BILIRUBIN,TOTAL 0.5 MG/DL (0.3-1.2); BLOOD UREA NITROGEN 15 MG/DL (9-23); CALCIUM LEVEL 9.2 MG/DL (8.5-10.1); CARBON DIOXIDE LEVEL 28 MMOL/L (20-31); CHLORIDE LEVEL 107 MMOL/L (98-107); CHOLESTEROL LEVEL 224 MG/DL (<200); CHOLESTEROL RISK RATIO 3.19 (<5); CREATININE FOR GFR 1.17 MG/DL (0.55-1.30); GLOMERULAR FILTRATION RATE 52.1 (>51); GLUCOSE, FASTING 89 MG/DL (60-100); HDL CHOLESTEROL 70.1 MG/DL (>40); LDL CHOLESTEROL 138.1 MG/DL (<100); NON-HDL-C 153.9 MG/DL; POTASSIUM SERUM 4.6 MMOL/L (3.5-5.1); SODIUM LEVEL 141 MMOL/L (136-145); TOTAL PROTEIN 6.8 G/DL (5.7-8.2); TRIGLYCERIDES LEVEL 79 MG/DL (<150)
[2024-07-29 15:33] LABS: THYROID STIMULATING HORMONE 1.465 uIU/ML (0.55-4.78); TOTAL 25(OH) VITAMIN D 48.8 NG/ML (20.0-100.0)
[2024-07-29 15:34] LABS: FREE T4 1.47 NG/DL (0.89-1.76); VITAMIN B12 LEVEL 599 PG/ML (211-911)
[2024-08-02 15:08] LABS: LYME TOTAL ANTIBODY CIA <= 0.90 Index (<=0.90)
== END ==
LOC: M LABDRWAD 07:04
PROVIDERS: ATTEND Family Medicine
DX: Z13.29 Encounter for screening for other suspected endocrine disorder (principal); Z13.220 Encounter for screening for lipoid disorders; R53.83 Other fatigue

== ENCOUNTER → 2024-08-16 | Outpatient (REF) | payer BC ==
[2024-08-16 20:04] LABS: CALCIUM LEVEL 9.6 MG/DL (8.5-10.1); CREATININE FOR GFR 1.2 MG/DL (0.55-1.30); GLOMERULAR FILTRATION RATE 50.6 (>51); POTASSIUM SERUM 4.5 MMOL/L (3.5-5.1)
== END ==
LOC: M LABDRAWP 17:12
PROVIDERS: ATTEND Family Medicine
DX: N17.9 Acute kidney failure, unspecified (principal)

== ENCOUNTER → 2024-09-10 | Outpatient (CLI) | payer BC | LOC: M RAD 13:38 | PROVIDERS: ATTEND Family Medicine | DX: N17.9 Acute kidney failure, unspecified (principal) ==

== ENCOUNTER → 2024-09-14 | Outpatient (CLI) | payer BC ==
[2024-09-14 13:42] LABS: BLOOD UREA NITROGEN 11 MG/DL (9-23); CALCIUM LEVEL 9.1 MG/DL (8.5-10.1); CARBON DIOXIDE LEVEL 27 MMOL/L (20-31); CHLORIDE LEVEL 106 MMOL/L (98-107); CREATININE FOR GFR 1.01 MG/DL (0.55-1.30); GLOMERULAR FILTRATION RATE > 60.0 (>51); GLUCOSE, FASTING 92 MG/DL (60-100); POTASSIUM SERUM 4.6 MMOL/L (3.5-5.1); SODIUM LEVEL 139 MMOL/L (136-145)
== END ==
LOC: M PLALAB 11:13
PROVIDERS: ATTEND Family Medicine
DX: N17.9 Acute kidney failure, unspecified (principal)

== ENCOUNTER → 2025-03-24 | Outpatient (CLI) | payer BC ==
[~2025-03-24] MED LIST changes: +ONDA-282 PO; +PERC5TAB12 PO; +PHEN37.511 PO; +TAMS-18 PO
== END ==
LOC: M PLAIMG 15:23 → M PLALAB 15:23
PROVIDERS: ATTEND Physician Assistant
DX: N20.1 Calculus of ureter (principal)